=== PATIENT | male | born 1995 | race Caucasian/White ===

== ENCOUNTER 2017-09-02 20:48 | Emergency (ER) | payer BC ==
[~2017-09-02] VITALS: Ht 182.9 cm; Wt 86.5 kg
[2017-09-02 21:40] VITALS: TEMP 36.8; Ht 182.9 cm; Wt 86.5 kg
[2017-09-02] MEDS ORDERED: SODIUM CHLORIDE 0.9% 1000ML 1,000 ML IV STA (23:24)
[2017-09-02] MEDS ORDERED: DiphenhydrAMINE HCL 50 MG/ML VIAL IV STA (23:24)
--- NOTE | 2017-09-02 23:25 | EMERGENCY ROOM VISIT NOTE ---
History Report prepared by Yojana: Hari Miranda Under the Supervision of: Dr. Naren Agarwal M.D. First contact with patient: 23:13 Chief Complaint: DIZZY Stated Complaint: FATIGUE,DIZZY,WEAKNESS Nursing Triage Summary: dizzy at home and had one nose bleed in the shower this am. denies pain. History of Present Illness The patient is a 22 year old male who presents to the Emergency Room with complaints of constant dizziness beginning today. The patient states that he was awake a lot this weekend because of [facility] and did not get much sleep. He notes that he slept a lot last night after the event ended, and when he woke up this morning, he became lightheaded and thought that he was going to pass out. He reports that he went back to sleep afterwards, but had difficulty falling asleep even though he was tired. The patient states that he also experienced an unusual nose bleed this morning in the shower. He notes that he feels like the room is spinning a little bit, but reports that he feels mostly lightheaded. He also complains of a racing pulse, nausea, dark urine, rhinorrhea , sore throat, and thinks that he might be dehydrated. He denies any syncope, chest pain, vomiting, and abdominal pain. The patient states that he has a history of heart issues. Source of History: patient Onset: today Position: head Quality: other (dizziness) Timing: constant Associated Symptoms: + sorethroat, + nausea, + urinary symptoms (dark urine) , No LOC, No chest pain, No vomiting, No abdominal pain Note: He also complains of lightheadedness, difficulty sleeping, a nose bleed, a racing pulse, and rhinorrhea. Review of Systems See HPI for pertinent positives & negatives. A total of 10 systems reviewed and were otherwise negative. Past Medical & Surgical Medical Problems: (1) Bronchitis (2) Malrotation of intestine Surgical Problems: (1) History of appendectomy Family History Heart disease Social History Smoking Status: Never Smoker Alcohol Use: occasionally Drug Use: marijuana Housing Status: lives with roommate Occupation Status: employed, [employer] student Current/Historical Medications No Active Prescriptions or Reported Meds Allergies Coded Allergies: Fanwood (Verified Allergy, Unknown, hives, 09/03/17) Physical Exam Vital Signs Date Time Temp Pulse Resp B/P (MAP) Pulse Ox O2 Delivery O2 Flow Rate FiO2 09/03/17 01:12 74 16 114/74 99 09/02/17 23:59 81 09/02/17 23:50 75 18 112/53 98 Room Air 09/02/17 22:37 79 123/69 98 Room Air 09/02/17 21:40 36.8 79 18 131/87 98 Room Air Physical Exam GENERAL: Patient is mildly anxious appearing and in minimal distress. HEENT: No acute trauma, normocephalic atraumatic, mucous membranes dry, no nasal congestion, no scleral icterus. NECK: No stridor, no adenopathy, no meningismus, trachea is midline. LUNGS: No dyspnea. Clear to auscultation and equal bilaterally. No wheeze, no rhonchi. HEART: Regular rate and rhythm. No murmurs, rubs, gallops appreciated. ABDOMEN: Soft, nontender, bowel sounds positive, no masses appreciated, no peritonitis. BACK: No midline tenderness, no CVA tenderness EXTREMITIES: Normal motion all extremities, no cyanosis, no edema. NEUROLOGIC: Alert and oriented, no acute motor or sensory deficits, no focal weakness, cranial nerves grossly intact. SKIN: No rash, no jaundice, no diaphoresis. Slight raised erythema of the right flank, mildly circular with breaks, no tenderness, easily blanches. Medical Decision & Procedures Laboratory Results 09/02/17 23:55 Red Blood Count 4.89, Mean Corpuscular Volume 89.0, Mean Corpuscular Hemoglobin 31.7, Mean Corpuscular Hemoglobin Concent 35.6, Mean Platelet Volume 10.2, Neutrophils (%) (Auto) 51.3, Lymphocytes (%) (Auto) 37.9, Monocytes (%) (Auto) 5.8, Eosinophils (%) (Auto) 4.1, Basophils (%) (Auto) 0.9, Neutrophils # (Auto) 3.00, Lymphocytes # (Auto) 2.22, Monocytes # (Auto) 0.34, Eosinophils # (Auto) 0.24, Basophils # (Auto) 0.05 09/02/17 23:55 Test 09/02/17 23:55 White Blood Count 5.85 K/uL (4.8-10.8) Red Blood Count 4.89 M/uL (4.7-6.1) Hemoglobin 15.5 g/dL (14.0-18.0) Hematocrit 43.5 % (42-52) Mean Corpuscular Volume 89.0 fL (80-100) Mean Corpuscular Hemoglobin 31.7 pg (25-34) Mean Corpuscular Hemoglobin Concent 35.6 g/dl (32-36) Platelet Count 296 K/uL (130-400) Mean Platelet Volume 10.2 fL (7.4-10.4) Neutrophils (%) (Auto) 51.3 % Lymphocytes (%) (Auto) 37.9 % Monocytes (%) (Auto) 5.8 % Eosinophils (%) (Auto) 4.1 % Basophils (%) (Auto) 0.9 % Neutrophils # (Auto) 3.00 K/uL (1.4-6.5) Lymphocytes # (Auto) 2.22 K/uL (1.2-3.4) Monocytes # (Auto) 0.34 K/uL (0.11-0.59) Eosinophils # (Auto) 0.24 K/uL (0-0.5) Basophils # (Auto) 0.05 K/uL (0-0.2) RDW Standard Deviation 40.7 fL (36.4-46.3) RDW Coefficient of Variation 12.6 % (11.5-14.5) Immature Granulocyte % (Auto) 0.0 % Immature Granulocyte # (Auto) 0.00 K/uL (0.00-0.02) Anion Gap 6.0 mmol/L (3-11) Est Creatinine Clear Calc Drug Dose 123.3 ml/min Estimated GFR () 118.4 Estimated GFR (Non- 102.2 BUN/Creatinine Ratio 15.0 (10-20) Calcium Level 8.8 mg/dl (8.5-10.1) Total Bilirubin 1.8 mg/dl (0.2-1) Aspartate Amino Transf (AST/SGOT) 17 U/L (15-37) Alanine Aminotransferase (ALT/SGPT) 29 U/L (12-78) Alkaline Phosphatase 95 U/L (45-117) Total Creatine Kinase 89 U/L (39-308) Total Protein 7.4 gm/dl (6.4-8.2) Albumin 4.1 gm/dl (3.4-5.0) Globulin 3.3 gm/dl (2.5-4.0) Albumin/Globulin Ratio 1.2 (0.9-2) Laboratory results as reviewed by me. Medications Administered Medications (Trade) Dose Ordered Sig/Oscar Route Start Time Stop Time Status Last Admin Dose Admin Sodium Chloride 1,000 ml @ 999 mls/hr Q1H1M STAT IV 09/02/17 23:24 09/03/17 00:24 DC 09/03/17 00:14 999 MLS/HR ECG Per My Interpretation Indication: other (dizziness) Rate (beats per minute): 64 Rhythm: sinus with SA Findings: no acute ischemic change, other (QTC 398) ED Course 2314: The patient was evaluated in room C4. A complete history and physical exam was performed. 0110: Reevaluated the patient. He is feeling better. He denies any RUQ pain or yellowing of his skin/eyes. He would like to go home and asked for a school note for today and yesterday. Discussed results and discharge instructions. He verbalized understanding and agreement. The patient is ready for discharge. Medical Decision Differential diagnoses include Benign positional vertigo, Dehydration, Hypovolemia, Anemia, Tumor, Infection, Hypoglycemia, Electrolyte abnormalities, Cardiac sources, Intracerebral event, Toxicologic, Neurologic, as well as others were entertained. 22 yr old male who feels dizzy, tired and not himself since standing/dancing for 24 hours straight. Dehydrated on exam without findings of sepsis/ meningitis nor neuro deficits. Labs with just mild bili elevation of non- specific etiology given normal other labs and no TTP nor pain in abdomen. Does not meet criteria for imaging brain. Electrolytes look good. Feeling better after fluids. EKG with sinus arrhythmia and NSR noted throughout ED stay on monitor. I do not feel this is cardiac in nature. He looks well and is in no distress. Rash right flank appears to be dry skin and does not have typical appearance of fungal appearance. Medication Reconcilliation Current Medication List: was personally reviewed by me Blood Pressure Screening Patient's blood pressure: Normal blood pressure Blood pressure disposition: Did not require urgent referral Impression Primary Impression: Fatigue Additional Impressions: Dehydration Exhaustion Scribe Attestation The scribe's documentation has been prepared under my direction and personally reviewed by me in its entirety. I confirm that the note above accurately reflects all work, treatment, procedures, and medical decision making performed by me. Departure Information Dispostion Home / Self-Care Prescriptions No Active Prescriptions or Reported Meds Referrals [facility] (PCP) Forms HOME CARE DOCUMENTATION FORM, IMPORTANT VISIT INFORMATION Patient Instructions ED Dehydration, My [facility] Additional Instructions Your Bilirubin was just mildly elevated. This could be due to a variety of causes, including possibly just your normal level. If you develop fevers, upper right abdominal pain, vomiting, yellowing of skin/ eyes, or other concerns follow up with your primary provider or return to emergency department. Problem Qualifiers
[2017-09-03 00:10] LABS: BASO % 0.9 %; BASO ABS # 0.05 K/uL (0-0.2); EOS % 4.1 %; EOS ABS # 0.24 K/uL (0-0.5); HEMATOCRIT 43.5 % (42-52); HEMOGLOBIN 15.5 g/dL (14.0-18.0); LYMPH % 37.9 %; LYMPH ABS # 2.22 K/uL (1.2-3.4); MEAN CORPUSCULAR HEMOGLOBIN 31.7 pg (25-34); MEAN CORPUSCULAR HGB CONC 35.6 g/dl (32-36); MEAN PLATELET VOLUME 10.2 fL (7.4-10.4); MONO % 5.8 %; MONO ABS # 0.34 K/uL (0.11-0.59); NEUT % 51.3 %; PLATELET COUNT 296 K/uL (130-400); RED CELL DISTRIBUTION WIDTH CV 12.6 % (11.5-14.5); RED CELL DISTRIBUTION WIDTH SD 40.7 fL (36.4-46.3); WHITE BLOOD COUNT 5.85 K/uL (4.8-10.8)
[2017-09-03 00:31] LABS: ALBUMIN 4.1 gm/dl (3.4-5.0); CALCIUM 8.8 mg/dl (8.5-10.1); CREATININE 1.04 mg/dl (0.60-1.40); POTASSIUM 3.7 mmol/L (3.5-5.1)
[2017-09-03 00:34] LABS: TOTAL PROTEIN 7.4 gm/dl (6.4-8.2)
[2017-09-03 01:12] VITALS: BP 114/74; PULSE 74; O2SAT 99
== END 2017-09-03 00:18 | disposition home or self-care (01) ==
LOC: C.EDB 20:51 → C.EDC 09-03 00:18
DX: R53.83 Other fatigue (principal); E86.0 Dehydration; Z82.49 Family history of ischemic heart disease and other diseases of the circulatory system; F12.90 Cannabis use, unspecified, uncomplicated; Z91.018 Allergy to other foods